=== PATIENT | male | born 1955 | race Caucasian/White ===

== ENCOUNTER → 2016-08-05 07:59 | Day surgery (SDC) | payer OTHER ==
[~2016-08-05 07:59] MED LIST: Buffered Lidocaine 1% SYR 3ML* 3 ML/SYR SYRINGE INTRADERM ONE; Buffered Lidocaine 1% SYR 3ML* 3 ML/SYR SYRINGE ONE; Bupivacaine 0.5% SDV PF* 30 ML VIAL ONE; Dexamethasone IV* 4 MG/ML 1 ML (4 MG) IV SLOW PU ONE; Dexamethasone IV* 4 MG/ML 1 ML (4 MG) ONE; Ketorolac INJ* 30 MG/ML 1 ML VIAL ONE; Lidocaine 2% MPF* 2 ML VIAL ONE; Midazolam* 1 MG/ML 5 ML VIAL (5 MG) ONE; Ondansetron INJ* 2 MG/ML VIAL ONE; PROCHLORPERAZINE INJ 5 MG/ML 2 ML VIAL IV PRN; Propofol* 10 MG/ML 20 ML BTL IV PUSH ONE; ceFAZolin 2 GM PREMIX (*) 0 GM/0 ML BAG IVPB ONE; ceFAZolin 2 GM PREMIX (*) 2 GM/50 ML BAG IVPB ONE; fentaNYL* 50 MCG/ML 2 ML VIAL (100 MCG VIAL) IV PRN; fentaNYL* 50 MCG/ML 2 ML VIAL (100 MCG VIAL) ONE
[2016-08-05 11:54] VITALS: BP 123/70
--- NOTE | 2016-08-05 14:48 | RAD ---
INDICATION: Left foot first metatarsal-phalangeal joint fusion. COMPARISON: Correlation is made with a prior x-ray study of the left great toe from October 31, 2015. TECHNIQUE: 7 of intermittent fluoroscopic guidance were provided and 2 spot films of the left great toe were obtained in the operating room. FINDINGS: The films demonstrate a metallic plate present along the dorsal aspect of the distal first metatarsal and proximal phalanx transfixed with multiple screws. There is also a single surgical screw spanning the first metatarsal-phalangeal joint. The bones are in normal alignment. IMPRESSION: INTRAOPERATIVE CONTROL FILMS. CPT II Codes: 6045F
--- NOTE | 2016-08-05 21:08 | OP ---
DATE OF OPERATION: 08/05/16 - [facility] DATE OF : 57 SURGEON: Paco Phillip MD. S[employer] CLEAN[employer] HAND: Jennifer Serrano PA-C. ANESTHESIOLOGIST: Irma Rome MD ANESTHESIA: General PRE-OP DIAGNOSIS: Left first MTP joint arthritis. POST-OP DIAGNOSIS: Left first MTP joint arthritis. OPERATIVE PROCEDURE: Left first MTP joint fusion. DESCRIPTION OF PROCEDURE: The patient was taken to the operating room where a longitudinal incision was made over the dorsal aspect of the first MTP joint. We reflected the soft tissues laterally to allow visualization of the dorsum of the joint. The osteophytes were removed with a rongeur and the joint prepared for arthrodesis using a small power gabriella. We then pinned the joint obliquely with a 26 mm length, 4.0 cannulated screw and then fashioned a rigid Y-plate to fit the dorsum of the joint of the F3 set. X-rays intraoperatively showed satisfactory position of the hardware. We irrigated thoroughly closing the capsule with 3-0 Vicryl, same for subcutaneous tissue and then nylon for the skin and a compression dressing applied. [id number]/[facility] #: [id number] [facility]
== END | disposition home or self-care (01) ==
LOC: OR 07:59
PROVIDERS: ATTEND Orthopaedic Surgery
DX: M19.072 Primary osteoarthritis, left ankle and foot (principal); M20.22 Hallux rigidus, left foot
CPT/HCPCS: 76001; 88304; 88311; C1713; C1776; J0690; J1100; J1885; J2250; J2405; J2704; J3010